=== PATIENT | male | born 1950 | race Caucasian/White ===

== ENCOUNTER 2025-06-11 06:50 | Emergency (ER) | payer MEDICARE, BC ==
[2025-06-11] MEDS ORDERED: EPINEPHrine 1 MG/10 ML Abboject SYRINGE ONE (07:18)
[2025-06-11] MEDS ORDERED: Calcium Chloride 1 GM/10 ML Abboject SYRINGE ONE (07:18)
== END 2025-06-11 07:04 | disposition expired ==
LOC: ERS 06:50
DX: S40.022A Contusion of left upper arm, initial encounter (principal); S40.021A Contusion of right upper arm, initial encounter; S29.9XXA Unspecified injury of thorax, initial encounter; I46.8 Cardiac arrest due to other underlying condition; I10 Essential (primary) hypertension; Z79.899 Other long term (current) drug therapy; V49.60XA Unspecified car occupant injured in collision with unspecified motor vehicles in traffic accident, initial encounter
CPT/HCPCS: 31500; 92950; 99285; G0390; J0165; J0282; J0461